=== PATIENT | female | born 1950 ===

== ENCOUNTER 2021-07-20 15:36 | Outpatient (REF) | payer MEDICARE, OTHER, SELFPAY | END 2021-07-20 15:37 | disposition home or self-care (01) | LOC: LBN 15:36 | PROVIDERS: PCP Nurse Practitioner Family; Referring Provider Nurse Practitioner Family; Visit Provider Nurse Practitioner Family | DX: R30.0 Dysuria (principal) | CPT/HCPCS: 87086 ==